=== PATIENT | female | born 2000 | race Caucasian/White ===

== ENCOUNTER 2019-11-06 10:36 | Emergency (ER) | payer SELFPAY ==
[~2019-11-06] VITALS: Ht 177.8 cm; Wt 76.2 kg
[2019-11-06] MEDS ORDERED: PRENATA CHEWAB1 EACH PO (11:10)
[2019-11-06] MEDS ORDERED: MACROBID 100 M100 MG PO (13:43)
== END 2019-11-06 13:52 | disposition home or self-care (01) ==
LOC: ED 10:36
DX: O23.42 Unspecified infection of urinary tract in pregnancy, second trimester (principal); O99.89 Other specified diseases and conditions complicating pregnancy, childbirth and the puerperium; R55 Syncope and collapse; Z3A.23 23 weeks gestation of pregnancy
CPT/HCPCS: 81001; 87088; 99284

== ENCOUNTER 2020-02-22 00:04 | Inpatient (IN) | payer BC ==
[~2020-02-22 00:04] MED LIST: MACROBID 100 M100 MG PO; PRENATA CHEWAB1 EACH PO
--- NOTE | 2020-02-22 08:57 | PR ---
[facility] [address] [place], [place] [address] Signed Progress Notes IP Datetime Report Generated by CPN: 02/22/2020 08:57 PROGRESS NOTES: [id number] Impression: Normal progression of labor Procedures: Intrauterine Pressure Catheter; Sterile Vag Exam Plan: Tocolysis Other Plans: IUPC VITAL SIGNS: [id number] Vital Signs: Reviewed; Within Normal Limits EXAM: [id number] Dilatation: 1.5 Effacement: 80 Station: -2 Uterine Contractions: q1 min MEMBRANES: [id number] Membrane Status: Ruptured Amniotic Fluid Color: Meconium, Light Comments: Pt seen and examined. Terb 0.25 subq administered by RN. Reviewed FHT with patient and partner. Discussed decelerations and meconium. Reviewed uterine tachystim with FHT changes and indications for tocolysis. Reviewed indications for delivery if intrauterine recussication not effective. Reviewed IUPC to allow for amnioinfusion if needed. All questions answered to best of my ability and to patient's apparent satisfaction Fetus A: [id number] FHR Baseline: 145 Variability: Moderate 6-25bpm Accelerations: None Decelerations: Late; Variable FHR Category: Category I Presentation: Vertex Comments on Fetus A: Variable decelerations improved but few late decelerations noted Fetus B: [id number] Signing Physician: Saida Moran DO Copies: ~ *Electronically Signed* 02/22/20 0857 SAIDA MORAN DO PATIENT NAME: ASHLEY RICHARDSON PROGRESS NOTE DATE OF : 98 PHYSICIAN: SAIDA MORAN DO RPT #: [id number] REPORT IS CONFIDENTIAL AND NOT TO BE RELEASED WITHOUT AUTHORIZATION
--- NOTE | 2020-02-22 11:21 | PR ---
[facility] [address] [place], [place] [address] Signed Progress Notes IP Datetime Report Generated by ZEUS: 02/22/2020 11:20 PROGRESS NOTES: [id number] Impression: Slow Progression of Labor Procedures: Scalp Electrode; Sterile Vag Exam Plan: Tocolysis Other Plans: Amnioinfusion VITAL SIGNS: [id number] Vital Signs: Reviewed; Within Normal Limits EXAM: [id number] Dilatation: 2.0 Effacement: 90 Station: -2 Uterine Contractions: q 1-2 minutes MEMBRANES: [id number] Membrane Status: Ruptured Amniotic Fluid Color: Meconium, Light Comments: Called to pt's room for prolonged deceleration following epidural placement. Pt now very comfortable w/ epidural. Cat 1 tracing prior to deceleration. FSE placed and a large amount of clear amniotic fluid noted. Cx 2cm but quite thin. Will initate amnioinfusion and give subq terbutaline. Continue intrauterine recussitation. Reviewed indications for if needed. All questions answered Fetus A: [id number] FHR Baseline: 135 Variability: Moderate 6-25bpm Accelerations: 15X15 Decelerations: Variable; Prolonged FHR Category: Category II Presentation: Vertex Comments on Fetus A: Overall reassurring status given moderate variability and accelerations Fetus B: [id number] Signing Physician: Saida Moran DO Copies: ~ *Electronically Signed* 02/22/20 1120 SAIDA MORAN DO PATIENT NAME: ASHLEY RICHARDSON PROGRESS NOTE DATE OF : 98 PHYSICIAN: SAIDA MORAN DO RPT #: [id number] REPORT IS CONFIDENTIAL AND NOT TO BE RELEASED WITHOUT AUTHORIZATION
--- NOTE | 2020-02-22 11:50 | PR ---
[facility] [address] [place], [place] [address] Signed Progress Notes IP Datetime Report Generated by CPN: 02/22/2020 11:50 PROGRESS NOTES: [id number] Impression: Reassuring heart rate Procedures: Scalp Electrode; Sterile Vag Exam Plan: Continue present management Other Plans: Amnioinfusion Informed Consent Obtain: Vaginal Delivery; Section Delivery VITAL SIGNS: [id number] Vital Signs: Reviewed; Within Normal Limits EXAM: [id number] Dilatation: 2.0 Effacement: 90 Station: -2 Uterine Contractions: q 2-3 minutes MEMBRANES: [id number] Membrane Status: Ruptured Amniotic Fluid Color: Meconium, Light Comments: Pt seen and evaluated. FHT much improved w/ terb, amnioinfusion, and maternal position changes. Reviewed FHT with patient and partner in detail, and discussed that if additional prolonged decelerations etc occur, a may be indicated. All questions answered Fetus A: [id number] FHR Baseline: 135 Variability: Moderate 6-25bpm Accelerations: 15X15 Decelerations: None FHR Category: Category I Presentation: Vertex Comments on Fetus A: Much improved w/ intrauterine rescussitation. No evidence of metabolic acidosis Fetus B: [id number] Signing Physician: Saida Moran DO Copies: ~ *Electronically Signed* 02/22/20 4550 SAIDA MORAN DO PATIENT NAME: ASHLEY RICHARDSON PROGRESS NOTE DATE OF : 98 PHYSICIAN: SAIDA MORAN DO RPT #: [id number] REPORT IS CONFIDENTIAL AND NOT TO BE RELEASED WITHOUT AUTHORIZATION
--- NOTE | 2020-02-22 12:53 | PR ---
[facility] [address] [place], [place] [address] Signed Progress Notes IP Datetime Report Generated by CPN: 02/22/2020 12:53 PROGRESS NOTES: [id number] Impression: Reassuring heart rate Procedures: Scalp Electrode; Sterile Vag Exam Plan: Continue present management Other Plans: Amnioinfusion Informed Consent Obtain: Vaginal Delivery; Section Delivery VITAL SIGNS: [id number] Vital Signs: Reviewed; Within Normal Limits EXAM: [id number] Dilatation: 2.0 Effacement: 90 Station: -2 Uterine Contractions: q 2-3 minutes MEMBRANES: [id number] Membrane Status: Ruptured Amniotic Fluid Color: Meconium, Light Comments: Reviewed FHT w/ pt. CAT 1 tracing. CTXs adequate. Will defer cervix check at this time. Continue amnioinfusion. All questions answered Fetus A: [id number] FHR Baseline: 130 Variability: Moderate 6-25bpm Accelerations: 15X15 Decelerations: None FHR Category: Category I Presentation: Vertex Comments on Fetus A: No evidence of metabolic acidosis Fetus B: [id number] Signing Physician: Saida Moran DO Copies: ~ *Electronically Signed* 02/22/20 4125 SAIDA MORAN DO PATIENT NAME: ASHLEY RICHARDSON PROGRESS NOTE DATE OF : 98 PHYSICIAN: SAIDA MORAN DO RPT #: [id number] REPORT IS CONFIDENTIAL AND NOT TO BE RELEASED WITHOUT AUTHORIZATION
--- NOTE | 2020-02-22 16:09 | PR ---
[facility] [address] [place], [place] [address] Signed Progress Notes IP Datetime Report Generated by ZEUS: 02/22/2020 16:09 PROGRESS NOTES: [id number] Impression: Normal progression of labor; Reassuring heart rate Procedures: Sterile Vag Exam Plan: Continue present management Other Plans: Amnioinfusion Informed Consent Obtain: Vaginal Delivery; Section Delivery VITAL SIGNS: [id number] Vital Signs: Reviewed; Within Normal Limits EXAM: B6327971 Dilatation: 6.0 Effacement: 95 Station: -1 Uterine Contractions: q 2 minutes MEMBRANES: [id number] Membrane Status: Ruptured Amniotic Fluid Color: Meconium, Light Comments: Pt seen and examined. Few variable decelerations noted since epidural rebolus. Overall FHT reassuring. Again reviewed tracing in detail w/ pt and partner. Will continue monitoring closely. Fetus A: [id number] FHR Baseline: 130 Variability: Moderate 6-25bpm Accelerations: 15X15 Decelerations: Variable FHR Category: Category II Presentation: Vertex Other Presentation: TAYO Comments on Fetus A: No evidence of metabolic acidosis. Variable decelerations noted Fetus B: [id number] Signing Physician: Saida Moran DO Copies: ~ *Electronically Signed* 02/22/20 1602 SAIDA MORAN DO PATIENT NAME: ASHLEY RICHARDSON PROGRESS NOTE DATE OF : 98 PHYSICIAN: SAIDA MORAN DO RPT #: [id number] REPORT IS CONFIDENTIAL AND NOT TO BE RELEASED WITHOUT AUTHORIZATION
--- NOTE | 2020-02-22 17:14 | PR ---
[facility] [address] [place], [place] [address] Signed Progress Notes IP Datetime Report Generated by CPManuelito: 02/22/2020 17:14 PROGRESS NOTES: [id number] Impression: Normal progression of labor Procedures: Sterile Vag Exam Plan: Continue present management Other Plans: Amnioinfusion Informed Consent Obtain: Vaginal Delivery; Section Delivery VITAL SIGNS: [id number] Vital Signs: Reviewed; Within Normal Limits EXAM: [id number] Dilatation: 7.0 Effacement: 95 Station: 0 Uterine Contractions: q2-3 min MEMBRANES: [id number] Membrane Status: Ruptured Amniotic Fluid Color: Meconium, Light Comments: Pt seen and examined. Doing well and comfortable w/ contractions. Reviewed strip that is overall reassuring with intermittent late decelerations w/ moderate variability and accels. Acceleration to scalp stimulation w/ sterile vaginal exam. Reviewed close monitoring of fetus and continued expectant management. Pt understands and agrees. Fetus A: [id number] FHR Baseline: 130 Variability: Moderate 6-25bpm Accelerations: 15X15 Decelerations: Late FHR Category: Category II Presentation: Vertex Other Presentation: TAYO Comments on Fetus A: Intermittent late decelerations w/ moderate variability and accelerations. Accel to scalp stim Fetus B: [id number] Signing Physician: Saida Moran DO Copies: *Electronically Signed* 02/22/20 5087 SAIDA MORAN DO PATIENT NAME: ASHLEY RICHARDSON PROGRESS NOTE DATE OF : 98 PHYSICIAN: SAIDA MORAN DO RPT #: [id number] REPORT IS CONFIDENTIAL AND NOT TO BE RELEASED WITHOUT AUTHORIZATION [address] [address] Signed ~ *Electronically Signed* 02/22/20 1714 SAIDA MORAN DO PATIENT NAME: ASHLEY RICHARDSON PROGRESS NOTE DATE OF : 98 PHYSICIAN: SAIDA MORAN DO RPT #: [id number] REPORT IS CONFIDENTIAL AND NOT TO BE RELEASED WITHOUT AUTHORIZATION
--- NOTE | 2020-02-22 18:27 | PR ---
[facility] [address] [place], [place] [address] Signed Progress Notes IP Datetime Report Generated by CPN: 02/22/2020 18:27 PROGRESS NOTES: [id number] Impression: Normal progression of labor; Reassuring heart rate Procedures: Sterile Vag Exam Plan: Continue present management; Anticipate Vaginal Delivery Other Plans: Amnioinfusion Informed Consent Obtain: Vaginal Delivery VITAL SIGNS: [id number] Vital Signs: Reviewed; Within Normal Limits EXAM: H1691697 Dilatation: 10.0 Effacement: 100 Station: 1 Uterine Contractions: q 4 minutes MEMBRANES: [id number] Membrane Status: Ruptured Amniotic Fluid Color: Meconium, Light Comments: Pt seen and examined. Pt now complete and +1 station. FHT shows overall reassuring tracing with moderate variability and accelerations, although late decelerations are present. Acceleration w/ scalp stim noted. Reviewed 2nd stage of labor w/ pt and possiblity that fetus does not tolerate pushing. Fetus A: [id number] FHR Baseline: 120 Variability: Moderate 6-25bpm Accelerations: 15X15 Decelerations: Late FHR Category: Category II Presentation: Vertex Other Presentation: TAYO Comments on Fetus A: Intermittent late decelerations w/ moderate variability and accelerations. Accel to scalp stim Fetus B: [id number] Signing Physician: Saida Moran DO Copies: *Electronically Signed* 02/22/20 1829 SAIDA MORAN DO PATIENT NAME: ASHLEY RICHARDSON PROGRESS NOTE DATE OF : 98 PHYSICIAN: MORANSAIDA DO RPT #: [id number] REPORT IS CONFIDENTIAL AND NOT TO BE RELEASED WITHOUT AUTHORIZATION [address] [address] Signed ~ *Electronically Signed* 02/22/20 1827 MORAN,SAIDA Frankel DO PATIENT NAME: ASHLEY RICHARDSON PROGRESS NOTE DATE OF : 98 PHYSICIAN: MORANSAIDA DO RPT #: [id number] REPORT IS CONFIDENTIAL AND NOT TO BE RELEASED WITHOUT AUTHORIZATION
--- NOTE | 2020-02-23 08:45 | PR ---
[facility] [address] [facility] [place], [place] [address] Signed PP Progress Notes Datetime Report Generated by CPN: 02/23/2020 08:45 SUBJECTIVE: [id number] Pain: Within normal limits Nausea/Vomiting: Denies Flatus: Yes Bowel Movement: No Vital Signs: [id number] Vital Signs: Reviewed; Within Normal Limits EXAM: [id number] Cardiovascular: Normal Respiratory: Normal Abdomen/Uterus: Normal Lochia: Normal Vulva/Perineum: Not Done Breasts: Not Done CVA Tenderness: Normal Extremities: Normal Incision: Not Applicable Progress: Normal Exam Comments: Fundus firm U-2 nontender IMPRESSION/PLAN/PROCEDURES: [id number] Impression: Normal progression Plan: Continue present management Progress Notes: Pt seen and examined. Doing well. Ambulating, voiding, and tolerating full diet. well. Pain and lochia minimal. No questions or concerns. Anticipate d/c home tomorrow. Signing Physician: Saida oMran DO Copies: ~ *Electronically Signed* 02/23/20 0845 SAIDA MORAN DO PATIENT NAME: ASHLEY RICHARDSON PROGRESS NOTE DATE OF : 98 PHYSICIAN: SAIDA MORAN DO RPT #: [id number] REPORT IS CONFIDENTIAL AND NOT TO BE RELEASED WITHOUT AUTHORIZATION
--- NOTE | 2020-02-24 08:36 | PR ---
[facility] [address] [facility] [place], [place] [address] Signed PP Progress Notes Datetime Report Generated by CPN: 02/24/2020 08:36 SUBJECTIVE: [id number] Pain: Within normal limits Nausea/Vomiting: Denies Flatus: Yes Bowel Movement: No Vital Signs: Q6001344 Vital Signs: Reviewed; Within Normal Limits EXAM: [id number] Cardiovascular: Normal Respiratory: Normal Abdomen/Uterus: Normal Lochia: Normal Vulva/Perineum: Not Done Breasts: Not Done CVA Tenderness: Normal Extremities: Normal Incision: Not Applicable Progress: Normal Exam Comments: Fundus firm U-2 nontender IMPRESSION/PLAN/PROCEDURES: [id number] Impression: Normal progression Plan: Discharge Progress Notes: Pt doing very well . Ambulating, voiding, and tolerating full diet. well. Pain and bleeding minimal. Desires d/c home. No questions or concerns. Signing Physician: Saida Moran DO Copies: ~ *Electronically Signed* 02/24/20 0836 SAIDA MORAN DO PATIENT NAME: RA DEBRAEANNE ARELY PROGRESS NOTE DATE OF : 98 PHYSICIAN: SAIDA MORAN DO RPT #: [id number] REPORT IS CONFIDENTIAL AND NOT TO BE RELEASED WITHOUT AUTHORIZATION
== END 2020-02-24 11:50 | disposition home or self-care (01) | DRG 807 ==
LOC: FBC 00:04
PROVIDERS: ADMIT Obstetrics & Gynecology
PROC: 10E0XZZ Delivery of Products of Conception, External Approach (ICD-10-PCS; principal; 2020-02-22)
PROC: 0KQM0ZZ Repair Perineum Muscle, Open Approach (ICD-10-PCS; 2020-02-22)
PROC: 10H07YZ Insertion of Other Device into Products of Conception, Via Natural or Artificial Opening (ICD-10-PCS; 2020-02-22)
PROC: 3E0E7GC Introduction of Other Therapeutic Substance into Products of Conception, Via Natural or Artificial Opening (ICD-10-PCS; 2020-02-22)
PROC: 3E0P7VZ Introduction of Hormone into Female Reproductive, Via Natural or Artificial Opening (ICD-10-PCS; 2020-02-22)
PROC: 10907ZC Drainage of Amniotic Fluid, Therapeutic from Products of Conception, Via Natural or Artificial Opening (ICD-10-PCS; 2020-02-22)
PROC: 00HU33Z Insertion of Infusion Device into Spinal Canal, Percutaneous Approach (ICD-10-PCS; 2020-02-22)
PROC: 3E0R3BZ Introduction of Anesthetic Agent into Spinal Canal, Percutaneous Approach (ICD-10-PCS; 2020-02-22)
DX: O69.1XX0 Labor and delivery complicated by cord around neck, with compression, not applicable or unspecified (principal); Z37.0 Single live birth; Z3A.39 39 weeks gestation of pregnancy; O76 Abnormality in fetal heart rate and rhythm complicating labor and delivery; O70.1 Second degree perineal laceration during delivery; O77.0 Labor and delivery complicated by meconium in amniotic fluid
CPT/HCPCS: 36415; 82803; 85027; A9270; J3010; J3105; U0002

== ENCOUNTER 2021-01-02 08:30 | Day surgery (SDC) | payer BC ==
[~2021-01-02] VITALS: Ht 177.8 cm; Wt 72.5 kg
[~2021-01-02 08:30] MED LIST changes: +SPRINTEC1 EACH PO
--- NOTE | 2021-01-02 10:29 | NUR ---
01/02/21 1029 Phyllis Lutz 1021 PT TO PACU VERY SLEEPY, SHE RESPONDS WHEN SPOKEN TO.
--- NOTE | 2021-01-02 11:42 | OR ---
[facility] [address] [place], [place] [address] Signed DATE OF OPERATION: 01/02/2021 SURGEON: Franck Infante MD PREOPERATIVE DIAGNOSES: 1. Rectal bleeding with bowel movements. 2. Minimal internal hemorrhoids. POSTOPERATIVE DIAGNOSES: 1. Rectal bleeding with bowel movements. 2. Minimal internal hemorrhoids. PROCEDURE: Colonoscopy without biopsy. ESTIMATED BLOOD LOSS: None. INDICATIONS: Jazmín is a 20-year-old young lady, who had her first son a little over nine months ago. She was born vaginally. There were no difficulties during the delivery. There was no episiotomy. Nevertheless, she has been having some bleeding with her bowel movements since August of 2020. She had been anemic after son was born, but that improved with her iron tablets. She said there is no pain with the bowel movements. It does not seem to bother her at night. She had been asked to see me in the office per her personal service workers. In the office, she had no external hemorrhoids. She had excellent sphincter tone. There was no irritation around the anus. With anoscopy, she does have very classic small internal hemorrhoids. At the 1 o'clock position that would be the largest of her three internal hemorrhoids. However, there was no bleeding or any irritation noted. There was no irritation around the dentate line or above the dentate line. She also has some small internal hemorrhoids at the 3 and 9 o'clock positions. In talking with Jazmín in office, she wanted to proceed with a colonoscopy. I had given her a pamphlet on colonoscopy. I had also given her a booklet on hemorrhoids as well. We went through the conservative treatment of hemorrhoids. Certainly, a fiber product and even just simple Vaseline for each bowel movement for a week or two might clear up any rectal bleeding by reducing friction with her bowel movements. In addition, she understands the nature of a colonoscopy. There is risk to that procedure including, but not limited to gas bloating, crampy abdominal pain, bleeding, perforation requiring surgery, and missed diagnosis. She also understands the need for IV conscious sedation. She had expressed understanding and wished to proceed with a colonoscopy. Electronically Signed By: FRANCK INFANTE MD 01/02/21 1142 PATIENT NAME: JAZMÍN RICHARDSON OPERATIVE REPORT DATE OF : [birth year] REPORT #: [id number] PHYSICIAN: FRANCK INFANTE MD PCP: SAIDA GONZALEZ DO REPORT IS CONFIDENTIAL AND NOT TO BE RELEASED WITHOUT AUTHORIZATION [facility] [address] [place], [place] [address] Signed PROCEDURE NOTE: Jazmín was taken into our endoscopy suite and placed in the left lateral decubitus position. She was given 7 mg of Versed and 150 mcg of fentanyl. A digital rectal exam was performed and again, no evidence of any external hemorrhoids. No irritation around the perianal skin. She has excellent sphincter tone. No palpable masses. The adult colonoscope was introduced and advanced under direct visualization of the camera. She is tall and she does have a very long redundant colon. It does have some angulation in the sigmoid colon and that did take while to get through that area. That required extra-sedation and abdominal compression. Eventually, we moved Jazmín onto her back, so we could get the camera around hepatic flexure and down into the cecum itself. Her prep was quite excellent. We could see the appendiceal orifice and the ileocecal valve. The scope was then slowly withdrawn. We saw no pathology throughout the entire colon or rectum. Specifically, no evidence of any diverticular disease or any inflammatory changes. The rectum was unremarkable. Upon retroflexion of scope once again, she has a very tiny minimal internal hemorrhoid tissue. There is again one small tiny internal hemorrhoid columns that is slightly larger than the others. After this, the gas had been suctioned out and the colonoscope removed. Jazmín tolerated the procedure quite well. RECOMMENDATIONS: Jazmín can certainly return to my office for any ongoing concerns. In the meantime, she will continue her conservative treatment of the hemorrhoids. Franck Infante MD ALB/MODL /[id number] cc: MD Saida Negron DO Copies: FRANCK INFANTE MD Electronically Signed By: FRANCK INFANTE MD 01/02/21 1142 PATIENT NAME: JAZMÍN RICHARDSON OPERATIVE REPORT DATE OF : [birth year] REPORT #: [id number] PHYSICIAN: FRANCK INFANTE MD PCP: SAIDA GONZALEZ DO REPORT IS CONFIDENTIAL AND NOT TO BE RELEASED WITHOUT AUTHORIZATION [address] [address] Signed SAIDA GONZALEZ DO ~ Electronically Signed By: FRANCK INFANTE MD 01/02/21 1142 PATIENT NAME: JAZMÍN RICHARDSON OPERATIVE REPORT DATE OF : [birth year] REPORT #: [id number] PHYSICIAN: FRANCK INFANTE MD PCP: SAIDA GONZALEZ DO REPORT IS CONFIDENTIAL AND NOT TO BE RELEASED WITHOUT AUTHORIZATION
== END 2021-01-02 11:15 | disposition home or self-care (01) ==
LOC: OPS 08:30 → DS 08:30 → OPS 09:45
PROVIDERS: ATTEND Colon & Rectal Surgery
PROC: 0DJD8ZZ Inspection of Lower Intestinal Tract, Via Natural or Artificial Opening Endoscopic (ICD-10-PCS; principal; 2021-01-02 09:45)
DX: K62.5 Hemorrhage of anus and rectum (principal); K64.8 Other hemorrhoids
CPT/HCPCS: 84703; 99153; G0500; J2250; J3010; J7121

== ENCOUNTER 2021-09-26 05:30 | Inpatient (IN) | payer BC ==
[~2021-09-26] VITALS: Ht 177.8 cm; Wt 81.2 kg
--- NOTE | 2021-09-26 06:35 | NUR ---
COVID SWAB DONE TO BOTH NARES.
--- NOTE | 2021-09-27 09:23 | PR ---
[facility] [address] [place], [place] [address] Signed PP Progress Notes Datetime Report Generated by CPN: 09/27/2021 09:22 SUBJECTIVE: [id number] Pain: Within Normal Limits Nausea/Vomiting: Denies Flatus: Yes Vital Signs: [id number] Vital Signs: Reviewed; Within Normal Limits Cardiovascular: Normal Respiratory: Normal Abdomen/Uterus: Normal Lochia: Normal Vulva/Perineum: Not Done Breasts: Not Done CVA Tenderness: Normal Extremities: Normal Incision: Not Applicable Progress: Normal Exam Comments: Fundus firm U-2 nontender IMPRESSION/PLAN/PROCEDURES: [id number] Impression: Normal Progression Plan: Discharge Progress Notes: Pt seen and examined. Doing well. Ambulating, voiding, and tolerating full diet. Pain and lochia minimal. well. No fevers/chills/ other concerns. Desires d/c home today. Reviewed discharge instructions in detail. Desires Mirena IUD for pp contraception Signing Physician: Saida Moran DO Copies: ~ *Electronically Signed* 09/27/21921 SADIA MORAN DO PATIENT NAME: ASHLEY RICHARDSON PROGRESS NOTE DATE OF : 98 PHYSICIAN: SAIDA MORAN DO RPT #: [id number] REPORT IS CONFIDENTIAL AND NOT TO BE RELEASED WITHOUT AUTHORIZATION
== END 2021-09-27 18:10 | disposition home or self-care (01) | DRG 807 ==
LOC: FBC 05:30
PROVIDERS: ADMIT Obstetrics & Gynecology; ATTEND Obstetrics & Gynecology
PROC: 10E0XZZ Delivery of Products of Conception, External Approach (ICD-10-PCS; principal; 2021-09-26)
PROC: 3E033VJ Introduction of Other Hormone into Peripheral Vein, Percutaneous Approach (ICD-10-PCS; 2021-09-26)
PROC: 10907ZC Drainage of Amniotic Fluid, Therapeutic from Products of Conception, Via Natural or Artificial Opening (ICD-10-PCS; 2021-09-26)
PROC: 3E0R3BZ Introduction of Anesthetic Agent into Spinal Canal, Percutaneous Approach (ICD-10-PCS; 2021-09-26)
PROC: 00HU33Z Insertion of Infusion Device into Spinal Canal, Percutaneous Approach (ICD-10-PCS; 2021-09-26)
DX: O99.02 Anemia complicating childbirth (principal); Z37.0 Single live birth; O22.13 Genital varices in pregnancy, third trimester; D50.9 Iron deficiency anemia, unspecified; Z3A.39 39 weeks gestation of pregnancy; Z86.16 Personal history of COVID-19
CPT/HCPCS: 01960; 85027; A9270; C9803; J2590; J2795; J3010; U0003

== ENCOUNTER 2025-04-06 06:05 | Inpatient (IN) | payer BC ==
[~2025-04-06] VITALS: Ht 177.8 cm; Wt 81.6 kg
[2025-04-06] MEDS ORDERED: CALCIUM CARBONATE 500 MG CHEW PO PRN ×2 (06:15→15:15)
[2025-04-06] MEDS ORDERED: MAGNESIUM HYDROXIDE/AL HYDROX 30 ML CUP PO PRN ×2 (06:15→15:15)
[2025-04-06] MEDS ORDERED: LACTATED RINGER'S 1,000 ML IV PRN (06:15)
[2025-04-06] MEDS ORDERED: LACTATED RINGER'S 1,000 ML IV SCH (06:15)
[2025-04-06 06:53] LABS: HEMATOCRIT 38.8 % (34.1-44.9); MCH 30.2 PG (25.6-32.2); MCHC 33.5 g/dL (32.2-35.5); MCV 90.2 fL (79.4-94.8); RBC 4.3 M/uL (3.93-5.22)
[2025-04-06 07:00] LABS: AMPHETAMINES, URINE NEGATIVE (NEGATIVE); BARBITURATES, URINE NEGATIVE (NEGATIVE); BENZODIAZEPINE, URINE NEGATIVE (NEGATIVE); BUPRENORPHINE, URINE NEGATIVE (NEGATIVE); CANNABINOID, URINE NEGATIVE (NEGATIVE); COCAINE, URINE NEGATIVE (NEGATIVE); ECSTASY, URINE NEGATIVE (NEGATIVE); FENTANYL, URINE NEGATIVE (NEGATIVE); METHADONE, URINE NEGATIVE (NEGATIVE); OPIATES, URINE NEGATIVE (NEGATIVE); OXYCODONE, URINE NEGATIVE (NEGATIVE); PHENCYCLIDINE, URINE NEGATIVE (NEGATIVE)
[2025-04-06 07:21] LABS: ABO A; ANTIBODY SCREEN NEGATIVE; RH POSITIVE
[2025-04-06 07:24] VITALS: BP 117/63
[2025-04-06] MEDS ORDERED: TERBUTALINE SULFATE 1 MG/ML AMP ONE (09:20)
[2025-04-06] MEDS ORDERED: OXYTOCIN/0.9 % SODIUM CHLORIDE 500 ML IV ONE (10:18)
[2025-04-06] MEDS ORDERED: BUPIVACAINE HCL 0.25% 30 ML SDV ONE (13:14)
[2025-04-06] MEDS ORDERED: dexmedeTOMIDine HCl 200 MCG/2 ML VIAL ONE (13:14)
[2025-04-06] MEDS ORDERED: ROPIVACAINE 0.2% 200 ML BAG ONE (13:34)
[2025-04-06] MEDS ORDERED: IBUPROFEN 600 MG TAB PO PRN (15:15)
[2025-04-06] MEDS ORDERED: BENZOCAINE 60 ML AEROSOL TOP PRN (15:15)
[2025-04-06] MEDS ORDERED: OXYCODONE/APAP 5/325 TAB PO PRN (15:15)
[2025-04-06] MEDS ORDERED: HYDROCORTISONE ACETATE 25 MG SUPP PR PRN (15:15)
[2025-04-06] MEDS ORDERED: ACETAMINOPHEN 325 MG TAB PO PRN (15:15)
[2025-04-06] MEDS ORDERED: MAGNESIUM HYDROXIDE 30 ML UDC PO PRN (15:15)
[2025-04-06] MEDS ORDERED: HYDROCODONE/ACETA 5/325 TAB PO PRN (15:15)
[2025-04-06] MEDS ORDERED: WITCH HAZEL/GLYCERIN 1 EA PAD TOP PRN (15:15)
[2025-04-06] MEDS ORDERED: OXYTOCIN/0.9 % SODIUM CHLORIDE 500 ML IV SCH (15:15)
[2025-04-06] MEDS ORDERED: SENNOSIDES/DOCUSATE 1 EA TAB PO SCH (21:00)
[2025-04-07 05:18] LABS: HEMATOCRIT 38.7 % (34.1-44.9); HEMOGLOBIN 12.6 g/dL (11.2-15.7); MCH 29.8 PG (25.6-32.2); MCHC 32.6 g/dL (32.2-35.5); MCV 91.5 fL (79.4-94.8); RBC 4.23 M/uL (3.93-5.22)
--- NOTE | 2025-04-07 08:18 | PR ---
[facility] [address] [place], [place] [address] Signed PP Progress Notes Datetime Report Generated by CPN: 04/07/2025 08:18 SUBJECTIVE: [id number] Pain: Within Normal Limits Nausea/Vomiting: Denies Flatus: Yes Bowel Movement: Yes Vital Signs: [id number] Vital Signs: Reviewed; Within Normal Limits Cardiovascular: Normal Respiratory: Normal Abdomen/Uterus: Normal Lochia: Normal Vulva/Perineum: Not Done Breasts: Not Done CVA Tenderness: Normal Extremities: Normal Incision: Not Applicable Progress: Normal Exam Comments: Fundus firm U-2 nontender IMPRESSION/PLAN/PROCEDURES: [id number] Impression: Normal Progression Plan: Discharge Progress Notes: Pt seen and examined. Doing well. Ambulating, voiding, and tolerating full diet. Pain and lochia minimal. well. No fever/chill. No other concerns. Desires d/c home. Reviewed d/c instructions and medications. Reviewed vulvar varicosities. Signing Physician: Saida Moran DO Copies: ~ *Electronically Signed* 04/07/2518 SAIDA MORAN (MESFIN) DO PATIENT NAME: HOPE,ASHLEY ARELY PROGRESS NOTE DATE OF : [birth year] PHYSICIAN: SAIDA MORAN (JD) DO RPT #: [id number] REPORT IS CONFIDENTIAL AND NOT TO BE RELEASED WITHOUT AUTHORIZATION
== END 2025-04-07 09:35 | disposition home or self-care (01) | DRG 807 ==
LOC: FBC 06:05
PROVIDERS: ADMIT Obstetrics & Gynecology; ATTEND Obstetrics & Gynecology
PROC: 10E0XZZ Delivery of Products of Conception, External Approach (ICD-10-PCS; principal; 2025-04-06)
PROC: 3E0R3BZ Introduction of Anesthetic Agent into Spinal Canal, Percutaneous Approach (ICD-10-PCS; 2025-04-06)
PROC: 00HU33Z Insertion of Infusion Device into Spinal Canal, Percutaneous Approach (ICD-10-PCS; 2025-04-06)
DX: O87.8 Other venous complications in the puerperium (principal); Z37.0 Single live birth; Z3A.39 39 weeks gestation of pregnancy
CPT/HCPCS: 36415; 80307; 85027; 86850; 86900; 86901; A9270; J7121